=== PATIENT | female | born 1985 | race Hispanic/Latino ===

== ENCOUNTER 2018-03-27 00:59 | Inpatient (IN) | payer OTHER, SELFPAY ==
[2018-03-27] MEDS ORDERED: MEPERIDINE HCL 25 MG/0.5 ML IV PRN (03:01)
[2018-03-27] MEDS ORDERED: Ringers Lactate 1,000 ML IV PRN (03:01)
[2018-03-27] MEDS ORDERED: MIDAZOLAM HCL 2 MG/2 ML INJ IV PRN (03:01)
[2018-03-27] MEDS ORDERED: BUTORPHANOL 1 MG/ML INJ IV PRN (03:01)
[2018-03-27] MEDS ORDERED: PROMETHAZINE 25 MG/ML VIAL IM PRN (03:01)
[2018-03-27] MEDS ORDERED: METHYLERGONOVINE 0.2MG/ML AMP IM PRN (03:01)
[2018-03-27 03:30] LABS: RPR Titer ND
[2018-03-27 03:32] LABS: Urine Appearance CLEAR; Urine Bilirubin NEGATIVE (NEG); Urine Blood NEGATIVE (NEG); Urine Color YELLOW; Urine Glucose NEGATIVE (NEG); Urine Protein NEGATIVE (NEG); Urine Specific Gravity <=1.005 (1.005-1.030); Urine Urobilinogen 0.2 mg/dL (0.2-1.0)
[2018-03-27 03:33] LABS: Absolute Lymphocytes (CBC) 1.6 K/uL (0.7-4.9); Absolute Monocytes 0.5 K/uL (0.1-1.3); Absolute Neutrophil 4.6 K/uL (1.8-8.0); Basophils % 0.2 % (0-1.3); Eosinophils % 1.8 % (0-4.4); Lymphocytes % 23.8 % (15.3-44.8); MCH 33.6 pg (27.0-35.0); MCV 93.7 fL (80-100); MPV 11.3 fL (7.6-11.3); Monocytes % 7.1 % (3.3-12.3); RBC Red Blood Cell Count 3.63 M/uL (3.86-4.86)
[2018-03-27 03:35] VITALS: BMI 27.9
[2018-03-27 03:39] LABS: Urine Microscopic Reflex NO UMIC
[2018-03-27] MEDS ORDERED: Ringers Lactate 1,000 ML IV SCH (04:00)
[2018-03-27] MEDS ORDERED: OXYTOCIN/LR 20 UNIT/1,000 ML BAG IV ONE (06:06)
[2018-03-27] MEDS ORDERED: OXYTOCIN/LR 20 UNIT/1,000 ML BAG IV SCH ×2 (07:00→10:00)
[2018-03-27] MEDS ORDERED: LIDOCAINE 2% INJ, 20 mL 0 ML ONE (09:23)
[2018-03-27] MEDS ORDERED: DOCUSATE NA/SENNA CONC 1 TAB PO PRN (09:37)
[2018-03-27] MEDS ORDERED: ACETAMINOPHEN 500 MG TAB PO PRN (09:37)
[2018-03-27] MEDS ORDERED: IBUPROFEN 200 MG TAB PO PRN (09:37)
[2018-03-27] MEDS ORDERED: Oxycodone HCl/Acetaminophen 1 TAB TAB PO PRN ×2 (09:37)
[2018-03-27] MEDS ORDERED: DIPHENHYDRAMINE 25 MG TAB/CAP PO PRN (09:37)
[2018-03-27] MEDS ORDERED: BISACODYL 10 MG RECTAL SUPP RECT PRN (09:37)
--- NOTE | 2018-03-27 14:20 | OP ---
Surgeon: Sunny Hernández MD A 32-year-old, 5, para 4, 37 weeks, 1 or 2 days, history of delivery between 36 and 38 weeks, came in, in active labor. Used Lamaze breathing techniques throughout the entire process. Light Pi tocin augmentation was performed and then rupture of membranes with clear fluid. Second stage of abo ut 15 minutes. Spontaneous vaginal delivery of an estimated 8 pounds male infant. Apgars 9 and 9. No episiotomy. No laceration. Schultze delivery of the placenta, which was inspected and noted to h ave an accessory lobe, but otherwise normal and intact. Estimated blood loss less than 300 cc. Rh p ositive, immune to Rubella. Negative beta-strep screen. The patient tolerated all procedures well. Final Diagnoses: Intrauterine gestation, 37 weeks 1 day, vaginal delivery. CANDICE/NADIR Voice ID: [id number] Report ID: [id number]
--- NOTE | 2018-03-27 15:31 | PREOPHP ---
Date of Admission: 03/27/2018 32-year-old, 5, para 4. The patient has a history of delivering all of her children at aroun d 36 to 38 weeks. The patient is now 37 weeks and 1 to 2 days. She has been offered celestone, but declined it during her . Has a male child, the other 4 were female, came in anastacio irr egularly, still anastacio irregularly, but is 6 cm, 90% effaced. The baby is fairly well applied w hen she has a contraction, but then moves back up a little bit as soon as the contraction stops. I d o not feel comfortable with rupturing membranes at this point, we will start her on Pitocin, bring th e baby down a little bit, and then she will either spontaneously rupture or we will rupture membranes when the baby is better applied. The patient is Rh positive, immune to Rubella. Negative strep scr een. She has been anemic with her , which would be expected considering the number of pregn ancies. Full admission and labor talk given. CANDICE/NADIR Voice ID: [id number]
[2018-03-27 23:07] LABS: RPR (Rapid Plasma Reagin) NON-REACT (NON-REACT)
[2018-03-28 13:46] VITALS: BP 99/61; TEMP 97
--- NOTE | 2018-03-29 05:23 | DS ---
Date of Discharge: 03/28/2018 Hospital Course: A 32-year-old 5, para 4, history of labors before, 39 weeks, came into our institution at 37 weeks and 2 days in active labor. Subsequently, delivered an estimated 8-pound mal e infant, Apgars 9 and 9. No episiotomy. No laceration. Schultze delivery of the placenta, which w as inspected and noted to be intact and normal. Less than 300 cc blood loss. Rh positive, immune to Rubella. Negative beta-strep screen. afebrile, ambulating and voiding. Lochia is luis l. Will be dismissed. To return to my office in 6 weeks for followup. To report if any temperature elevation of 100 degrees or greater, severe pain, heavy bleeding, or any other type of abnormalities . Requests no analgesics on dismissal. Final Diagnosis: Term intrauterine at 37 weeks 2 days, vaginal delivery. CANDICE/NADIR Voice ID: [id number] Report ID: [id number]
[2018-03-29 19:08] LABS: HBsAG Nonreactive (Nonreactive)
== END 2018-03-28 12:35 | disposition home or self-care (01) | DRG 775 ==
LOC: L&D 00:59 → 2ND-WC 03:05
PROVIDERS: ADMIT Specialist; ATTEND Specialist
PROC: 10E0XZZ Delivery of Products of Conception, External Approach (ICD-10-PCS; principal; 2018-03-27)
PROC: 10907ZC Drainage of Amniotic Fluid, Therapeutic from Products of Conception, Via Natural or Artificial Opening (ICD-10-PCS; 2018-03-27)
DX: O80 Encounter for full-term uncomplicated delivery (principal); Z3A.37 37 weeks gestation of pregnancy; Z37.0 Single live birth
CPT/HCPCS: 36415; 81003; 85025; 86592; 86901; 87340; J2175; J2210; J2250; J2590

== ENCOUNTER 2020-06-16 20:58 | Inpatient (IN) | payer OTHER ==
[2020-06-16] MEDS ORDERED: CARBOPROST TROME 250 MCG/ML IM PRN (21:26)
[2020-06-16] MEDS ORDERED: Ringers Lactate 1,000 ML IV PRN (21:26)
[2020-06-16] MEDS ORDERED: METHYLERGONOVINE 0.2MG/ML AMP IM PRN (21:26)
[2020-06-16] MEDS ORDERED: METHYLERGONOVINE 0.2MG/ML AMP IM ONE (21:27)
[2020-06-16] MEDS ORDERED: CARBOPROST TROME 250 MCG/ML IM ONE (21:27)
[2020-06-16] MEDS ORDERED: LIDOCAINE 1% MPF 30 ML VIAL ONE (21:27)
[2020-06-16] MEDS ORDERED: LIDOCAINE 1% 20 ML MDV IV ONE (21:28)
[2020-06-16] MEDS ORDERED: OXYTOCIN/LR 20 UNIT/1,000 ML BAG IV ONE (21:34)
[2020-06-16] MEDS ORDERED: BISACODYL 10 MG RECTAL SUPP PR PRN (21:45)
[2020-06-16] MEDS ORDERED: DIPHENHYDRAMINE 25 MG TAB/CAP PO PRN (21:45)
[2020-06-16] MEDS ORDERED: Oxycodone HCl/Acetaminophen 1 TAB TAB PO PRN ×2 (21:45)
[2020-06-16] MEDS ORDERED: ACETAMINOPHEN 500 MG TAB PO PRN (21:45)
[2020-06-16] MEDS ORDERED: DOCUSATE NA/SENNA CONC 1 TAB PO PRN (21:45)
[2020-06-16] MEDS ORDERED: Ringers Lactate 1,000 ML IV SCH (22:00)
[2020-06-16] MEDS ORDERED: OXYTOCIN/LR 20 UNIT/1,000 ML BAG IV SCH ×2 (22:00)
[2020-06-16 22:25] VITALS: BMI 26.5
[2020-06-16 22:27] LABS: Absolute Lymphocytes (CBC) 1.1 K/uL (0.7-4.9); Basophils % 0.1 % (0-1.3); Hematocrit 33.8 % (36.0-45.0); Lymphocytes % 14.5 % (15.3-44.8); MPV 10.5 fL (7.6-11.3); RBC Red Blood Cell Count 3.64 M/uL (3.86-4.86)
[2020-06-16 22:42] LABS: Urine Appearance CLOUDY; Urine Bilirubin NEGATIVE (NEG); Urine Blood 3+ (NEG); Urine Color YELLOW; Urine Glucose NEGATIVE (NEG); Urine Microscopic Reflex ORDER UMIC; Urine Protein NEGATIVE (NEG); Urine Specific Gravity 1.015 (1.005-1.030); Urine Urobilinogen 0.2 mg/dL (0.2-1.0); Urine pH 7.5 (5.0-7.0)
[2020-06-16 23:12] LABS: Urine Bacteria 20-50 /HPF (<20); Urine Culture Reflex Order REFLEXED; Urine Mucus 1+ /HPF (NONE SEEN); Urine RBC >50 /HPF (NONE SEEN)
[2020-06-16] MEDS: IBUPROFEN 200 MG TAB PO PRN (23:30)
--- NOTE | 2020-06-17 07:21 | PN ---
Patient is doing well. Lochia is normal. She is ambulating and voiding. Patient will be dismissed tomorrow. We will go over dismissal instructions again, but she has had several babies and knows wha t to do. She has had her Tdap and flu shots. She has no complaints or problems this morning. We wi ll give her full dismissal instructions tomorrow. CANDICE/NADIR Voice ID: [id number] Report ID: [id number]
[2020-06-17] MEDS: IBUPROFEN 200 MG TAB PO PRN ×2 (08:45→15:05)
[2020-06-17 17:59] LABS: RPR (Rapid Plasma Reagin) NON-REACT (NON-REACT)
[2020-06-17 19:51] VITALS: BP 96/56; TEMP 97.9
--- NOTE | 2020-06-21 09:52 | PREOPHP ---
Date of Admission: 06/16/2020 History Of Present Illness: is 24-year-old 6, para 5, at 38 weeks 3 days came in, in advanced labor, 8 cm, with bulging membranes, went to complete. When I arrived, the patient was complete, rupture of membranes clear fluid. Within the next 15 minutes, she delivered spontaneously an estimated 6-pound male. Shoulder cord. No episiotomy. No lacerations. Schultze delivery of the placenta. Estimated blood loss was less than 250 cc. The patient is Rh positive, immune to Rubella , negative strep screen. Tolerated all procedures well. Natural childbirth. Family History: Mother and father with diabetes. Father with kidney stones. No other significant f amily history. Allergies: THE PATIENT HAS NO ALLERGIES. Medications: She was taking vitamins. Social History: Does not smoke. Physical Examination: HEENT: Clear. Pupils equal, round, and reactive to light and accommodation. Conjunctivae well perf used. No oral, lingual, or buccal lesions. Chest: Lungs are clear. Heart: Without murmurs, thrills, heaves, or rubs. Breasts: Without masses on previous visits. Abdomen: Term size. Extremities: Clear without edema, cyanosis, or clubbing. Admit and delivered. CANDICE/NADIR Voice ID: [id number]
[2020-06-21 19:17] LABS: HBsAG Nonreactive (Nonreactive)
== END 2020-06-17 23:05 | disposition home or self-care (01) | DRG 807 ==
LOC: L&D 20:58 → 2ND-WC 21:16
PROVIDERS: ADMIT Specialist; ATTEND Specialist
PROC: 10E0XZZ Delivery of Products of Conception, External Approach (ICD-10-PCS; principal; 2020-06-16)
DX: O80 Encounter for full-term uncomplicated delivery (principal); Z37.0 Single live birth; O75.5 Delayed delivery after artificial rupture of membranes; Z3A.38 38 weeks gestation of pregnancy
CPT/HCPCS: 36415; 81003; 81015; 85025; 86592; 86850; 86900; 86901; 87086; 87088; 87340; J2210; J2590; J7120